=== PATIENT | male | born 1995 | race American Indian/Alaskan Native ===

== ENCOUNTER 2021-08-20 12:37 | Emergency (ER) | payer SELFPAY | END 2021-08-20 14:00 | disposition home or self-care (01) | LOC: JD.ED 12:37 | DX: L03.113 Cellulitis of right upper limb (principal); L03.114 Cellulitis of left upper limb; L30.9 Dermatitis, unspecified | CPT/HCPCS: 87070; 87075; 87077; 87186; 87205; 99283 ==

== ENCOUNTER 2021-08-28 09:34 | Emergency (ER) | payer SELFPAY | END 2021-08-28 12:50 | disposition home or self-care (01) | LOC: JD.ED 09:34 | DX: T78.40XA Allergy, unspecified, initial encounter (principal) | CPT/HCPCS: 36415; 80053; 85025; 86140; 99283 ==